=== PATIENT | female | born 1960 | race Caucasian/White ===

== ENCOUNTER 2017-02-22 11:12 | Emergency (ER) | payer BC ==
[2017-02-22 12:28] LABS: ALT (SGPT) 20 U/L (8-55); AST (SGOT) 20 U/L (5-34); Alkaline Phosphatase 63 U/L (40-150); Anion Gap 13 mmol/L (10-20); BUN (Urea Nitrogen) 14 mg/dL (9.8-20.1); Bilirubin, Total 0.5 mg/dL (0.2-1.2); Calc. Creatinine Clearance 0 mL/min (70-130); Calcium 9.3 mg/dL (7.8-10.44); Carbon Dioxide 24 mmol/L (22-29); Chloride 104 mmol/L (98-107); Estimated GFR-MDRD 74; Globulin 3.7 g/dL (2.4-3.5); Lipase 24 U/L (8-78); Protein, Total 7.7 g/dL (6.0-8.3)
[2017-02-22 12:31] LABS: Hematocrit 42.6 % (36.0-47.0); Mean Platelet Volume 7.9 fL (7.4-10.4); Neutrophil 42 % (42-75); Red Blood Cell (RBC) Count 4.79 mill/uL (4.20-5.40); White Blood Cell (WBC) Count 6.3 thou/uL (4.8-10.8)
[2017-02-22] MEDS ORDERED: Ondansetron HCl/PF 4 MG/2 ML Vial ONE (12:47)
--- NOTE | 2017-02-22 13:35 | RAD ---
PORTABLE CHEST 1 VIEW: DATE: 02/22/17. TIME: 12:55 p.m. HISTORY: Shortness of breath. FINDINGS/IMPRESSION: Comparison is made with the exam of 02/15/04. The heart is enlarged. The lungs are expanded without confluent areas of consolidation, pneumothora x or large effusions. No lobar consolidation, pneumothorax, manny pulmonary edema, or pleural effus ions are seen. There is a small area of increased density in the right lower lung. This may be due to infiltrate or atelectatic change. POS: [facility]
--- NOTE | 2017-02-22 14:07 | CT ---
CT ABDOMEN AND PELVIS WITH CONTRAST: COMPARISON: None. HISTORY: Abdominal pain since 03/02/17 that has been cramping in nature. This is most intense in the left lo wer quadrant of the abdomen and is associated with diarrhea. TECHNIQUE: Multiple contiguous axial images were obtained in a CT of the abdomen and pelvis with contrast. Cor onal reformats were performed. FINDINGS: There is diffuse fatty infiltration of the liver. No focal liver lesions are seen. The gallbladder , kidneys, adrenal glands, spleen, and pancreas are unremarkable. No free air, free fluid, or stran ding changes are seen in the abdomen or pelvis. The reproductive organs are unremarkable. The large and small bowel are unremarkable. The appendix is not definitely seen. No abdominal or pelvic lymphadenopathy are present. Degenerative changes are seen in the spine. The visualized inferior thorax and abdominal wall soft tissues are unremarkable. IMPRESSION: No evidence of acute intraabdominal/pelvic abnormality. POS: [facility]
[2017-02-22 14:23] LABS: Lactic Acid - Sepsis 1.2 mmol/L (0.5-2.2)
[2017-02-22] MEDS ORDERED: Ketorolac Tromethamine 30 MG/ML VIAL ONE (14:59)
== END 2017-02-22 16:50 | disposition home or self-care (01) ==
LOC: ERS 11:12
DX: R10.32 Left lower quadrant pain (principal); R06.02 Shortness of breath; E11.9 Type 2 diabetes mellitus without complications; I10 Essential (primary) hypertension; Z79.82 Long term (current) use of aspirin; Z79.899 Other long term (current) drug therapy
CPT/HCPCS: 36415; 71010; 74177; 80053; 83605; 83690; 85025; 96361; 96374; 96375; J1885; J2270; J2405

== ENCOUNTER 2019-02-15 19:44 | Emergency (ER) | payer BC ==
[2019-02-15] MEDS ORDERED: HYDROcodone/Acetaminophen 5/325 mg Tablet ONE (22:08)
--- NOTE | 2019-02-15 22:27 | RAD ---
EXAM: Right hip: 2 views INDICATIONS: Hip pain COMPARISON: None. FINDINGS: No evidence of fracture. No osseous abnormality. IMPRESSION: No acute finding
--- NOTE | 2019-02-15 22:27 | RAD ---
EXAM: Right femur: 4 views INDICATIONS: Pain COMPARISON: None. FINDINGS: No evidence of fracture. Mild degenerative change at the right knee. IMPRESSION: No acute finding
== END 2019-02-15 23:58 | disposition home or self-care (01) ==
LOC: ERS 19:44
DX: M79.651 Pain in right thigh (principal); I10 Essential (primary) hypertension; Z79.899 Other long term (current) drug therapy

== ENCOUNTER 2019-07-12 14:58 | Outpatient (CLI) | payer BC ==
--- NOTE | 2019-07-12 16:17 | MMO ---
Bilateral MAMMO Bilat Diag [facility]. CLINICAL HISTORY: Patient is 59 years old and is seen for diagnostic exam and lump or thickening in the right breast. The patient has the following family history of breast cancer: sister, at age 48. The patient has no personal history of cancer. VIEWS: The views performed were: bilateral craniocaudal with tomosynthesis; bilateral mediolateral oblique with tomosynthesis; and bilateral mediolateral with tomosynthesis. FILMS COMPARED: The present examination has been compared to prior imaging studies performed at [facility] on 07/12/2019, and at [facility]) on 01/14/2016, 02/01/2016 and 02/12/2016. This study has been interpreted with the assistance of computer-aided detection. MAMMOGRAM FINDINGS: The breasts are heterogeneously dense, which could obscure a lesion on mammography. NO definite abnormality is seen in the region of the mass at 12:00 right breast on US. Benign calcifications are noted bilaterally. In the left breast, there are no suspicious masses, calcifications or areas of architectural distortion. IMPRESSION: FINDING IN THE RIGHT BREAST IS SUSPICIOUS. AN ULTRASOUND-GUIDED BREAST BIOPSY IS RECOMMENDED. THE RESULTS OF THIS EXAM WERE SENT TO THE PATIENT. ACR BI-RADS Category 4 - Suspicious abnormality - biopsy should be considered D/W pt in person @ 1615 hrs. MAMMOGRAPHY NOTE: 1. A negative mammogram report should not delay a biopsy if a dominant of clinically suspicious mass is present. 2. Approximately 10% to 15% of breast cancers are not detected by mammography. 3. Adenosis and dense breasts may obscure an underlying neoplasm. Reported by: MARGARITA DE LA ROSA MD Electonically Signed: [id number]
--- NOTE | 2019-07-12 17:46 | ULT ---
RIGHT BREAST ULTRASOUND: 07/12/19 HISTORY: Abnormal mammogram from 05/03/16. FINDINGS: Comparison is made with the mammograms of today and ultrasound of 02/12/16. At the 12 o'clock position of the right breast 4 cm from the nipple is a shadowing solid mass measuri ng 11 x 9 x 7 mm. No definite mammographic correlate is seen. IMPRESSION: BI-RADS 4: Suspicious Abnormality - Biopsy Should Be Considered Usually requires biopsy. Ultrasound guided biopsy is recommended. Discussed in person with the patient at 4:14 p.m. POS: OFF
== END 2019-07-12 14:59 | disposition home or self-care (01) ==
LOC: BICMAMMO 14:58
PROVIDERS: ATTEND Clinical Nurse Specialist Medical-Surgical
DX: R92.8 Other abnormal and inconclusive findings on diagnostic imaging of breast (principal)
CPT/HCPCS: 77066; G0279

== ENCOUNTER 2022-11-15 12:48 | Emergency (ER) | payer BC, OTHER ==
[2022-11-15] MEDS ORDERED: HYDROcodone/Acetaminophen 5/325 mg Tablet ONE (14:13)
== END 2022-11-15 14:43 | disposition home or self-care (01) ==
LOC: ERS 12:48
DX: M17.11 Unilateral primary osteoarthritis, right knee (principal); E11.9 Type 2 diabetes mellitus without complications; I10 Essential (primary) hypertension; Z79.82 Long term (current) use of aspirin